=== PATIENT | female | born 2000 | race African-American/Black ===

== ENCOUNTER 2019-06-15 12:29 | Emergency (ER) | payer BC ==
[~2019-06-15] VITALS: Ht 167.6 cm; Wt 55.0 kg
[2019-06-15 16:14] LABS: COLOR URINE YELLOW (YELLOW); KETONES URINE NEGATIVE (NEGATIVE); LEUKOCYTE ESTERASE URINE NEGATIVE (NEGATIVE); NITRITE URINE NEGATIVE (NEGATIVE); OCCULT BLOOD URINE NEGATIVE (NEGATIVE); PROTEIN URINE NEGATIVE (NEGATIVE); SPECIFIC GRAVITY URINE 1.023 (1.005-1.030); UROBILINOGEN URINE 0.2 E.U./dL (0.2-1.0)
[2019-06-15 16:18] LABS: CLARITY URINE CLEAR (CLEAR)
[2019-06-15] MEDS ORDERED: IBUPROFEN 600MG TABLET PO ONE (16:45)
[2019-06-15 16:50] VITALS: BP 123/68
== END 2019-06-15 18:47 | disposition home or self-care (01) ==
LOC: ER 12:29
DX: R10.9 Unspecified abdominal pain (principal)
CPT/HCPCS: 81003; 81025; 99283